=== PATIENT | female | born 1990 | race Caucasian/White ===

== ENCOUNTER 2024-03-17 23:59 | Outpatient (REF) | payer BC, SELFPAY | END 2024-03-18 | disposition home or self-care (01) | LOC: NCHCN 23:59 | PROVIDERS: Visit Provider Family Medicine | DX: B36.0 Pityriasis versicolor (principal) | CPT/HCPCS: 87102; 87206 ==

== ENCOUNTER 2025-03-17 01:59 | Outpatient (CLI) | payer BC, SELFPAY ==
[2025-03-17 14:12] LABS: Abs Immature Grans 0.03 10^3/uL (0.0-0.06); HCT 36.1 % (36.0-46.0); HGB 12.0 g/dL (11.2-15.7); Immature Grans % 0.3 %; MCH 28.2 pg (27.0-33.0); MCHC 33.2 % (32.0-36.0); MCV 85 fL (80-95); MPV 9.6 fL (8.0-11.0); Platelet Count 221 10^3/uL (130-400); RBC 4.26 10^6/uL (3.93-5.22); RDW 14.5 % (11.7-14.6); RDW-SD 44.5 fL; WBC 10.63 10^3/uL (4.4-10.8)
[2025-03-17 15:14] LABS: Ferritin 32 ng/mL (8-252)
[2025-03-18 19:40] LABS: HIV-1/2 Ag & Ab Screen Negative (Negative)
[2025-03-22 15:02] LABS: Syphilis IgG w/Reflex Nonreactive (Nonreactive)
== END 2025-03-17 02:00 | disposition home or self-care (01) ==
LOC: LBO 01:59
PROVIDERS: Visit Provider Advanced Practice Midwife
DX: Z34.91 Encounter for supervision of normal pregnancy, unspecified, first trimester (principal); R53.83 Other fatigue
CPT/HCPCS: 36415; 86787; 86850; 86900; 86901; 87389; 82728; 85025; 86780

== ENCOUNTER 2025-03-17 14:43 | Outpatient (REF) | payer BC, SELFPAY | END 2025-03-17 14:44 | disposition home or self-care (01) | LOC: LBN 14:43 | PROVIDERS: PCP Family Medicine; Visit Provider Advanced Practice Midwife | DX: Z34.91 Encounter for supervision of normal pregnancy, unspecified, first trimester (principal) | CPT/HCPCS: 87077; 87086; 87186 ==

== ENCOUNTER 2025-03-26 17:40 | Outpatient (REF) | payer BC, SELFPAY ==
[2025-03-29 11:15] LABS: Lyme Ab w Rflx to Lyme Confirm Negative (Negative)
[2025-03-31 13:45] LABS: B. miyamotoi PCR Negative (Negative); Babesia divergens/MO-1 Negative (Negative); Ehrlichia muris eauclairensis Negative (Negative)
== END 2025-03-26 17:41 | disposition home or self-care (01) ==
LOC: NCHCN 17:40
PROVIDERS: PCP Family Medicine; Visit Provider Family Medicine
DX: S90.562A Insect bite (nonvenomous), left ankle, initial encounter (principal); W57.XXXA Bitten or stung by nonvenomous insect and other nonvenomous arthropods, initial encounter
CPT/HCPCS: 87798; 86618